=== PATIENT | female | born 1965 | race Hispanic/Latino ===

== ENCOUNTER 2018-08-23 21:59 | Emergency (ER) | payer OTHER ==
--- NOTE | 2018-08-23 22:33 | EDM.PDOC ---
ED HPI GENERAL MEDICAL PROBLEM - General Chief Complaint: Headache Stated Complaint: HEADACHE BACK PAIN Time Seen by Provider: 08/23/18 22:22 Source of Information: Reports: Patient History Limitations: Reports: No Limitations - History of Present Illness INITIAL COMMENTS - FREE TEXT/NARRATIVE: 52 yo F h/o anemia comes in today with complaints of GILLIS x 2 days and "high blood pressure". She states she just finished her menses and usually gets migraine-like GILLIS with them that "comes and goes". She denies any aura or sensitivity to light, but does feel better when she naps. She takes Motrin with relief, but states her GILLIS is still present and that worried her, though she states she is already feeling better with no intervention. She also checked her BP at home using her 's BP Cuff and stated it was 170/107. She usually does not have a BP issue. Here her BP is 157/85. She came in because "I was worried I might be dying". No other concerns at this time. No PCP in the area- she is visiting her and daughter here. Headache Pain Score (Numeric/FACES): 5 - Related Data Allergies Allergy/AdvReac Type Severity Reaction Status Date / Time No Known Allergies Allergy Verified 08/23/18 22:13 Home Meds: Home Meds Ferrous Gluconate [Iron] 08/23/18 [History] Past Medical History - Past Health History Medical/Surgical History: Denies Medical/Surgical History Social & Family History - Tobacco Use Smoking Status *Q: Never Smoker ED ROS GENERAL - Review of Systems Review Of Systems: ROS reveals no pertinent complaints other than HPI. - Physical Exam Exam: See Below Exam Limited By: No Limitations General Appearance: Alert, WD/WN, Anxious Eye Exam: Bilateral Eye: EOMI, Normal Inspection, PERRL Ears: Normal External Exam, Hearing Grossly Normal Respiratory/Chest: No Respiratory Distress, Lungs Clear, Normal Breath Sounds, No Accessory Muscle Use, Chest Non-Tender Cardiovascular: Normal Peripheral Pulses, Regular Rate, Rhythm, No Edema, No Gallop, No JVD, No Murmur, No Rub Psychiatric: Anxious Skin Exam: Warm, Dry, Intact, Normal Color, No Rash Course - Vital Signs Last Recorded V/S: Last Vital Signs Temp 98.5 F 08/23/18 22:14 Pulse 67 08/23/18 22:14 Resp 18 08/23/18 22:14 BP 153/90 H 08/23/18 22:14 Pulse Ox 97 08/23/18 22:14 Departure - Departure Time of Disposition: 22:44 Disposition: Home, Self-Care 01 Condition: Good Clinical Impression: Headache Qualifiers: Headache type: unspecified Headache chronicity pattern: chronic headache Intractability: intractable Qualified Code(s): R51 - Headache - Discharge Information *PRESCRIPTION DRUG MONITORING PROGRAM REVIEWED*: Not Applicable *COPY OF PRESCRIPTION DRUG MONITORING REPORT IN PATIENT LILI: Not Applicable Instructions: General Headache Without Cause, [id number] Referrals: PCP,Not In Area [Primary Care Provider] - Forms: ED Department Discharge Additional Instructions: You were seen in the ED today for headache and for blood pressure check, as it was elevated at home. At this time, your blood pressure is in a normal range and is not an emergent condition. Your headache is likely related to your menstrual cycle and dehydration- recommend staying hydrated and over the counter pain medication. Recommend follow up with your primary care provider. Please return to ED if new or worsening symptoms.
== END 2018-08-23 22:55 | disposition home or self-care (01) ==
LOC: JD.ED 21:59
DX: R51 Headache (principal)
CPT/HCPCS: 99282; 99283